=== PATIENT | male | born 1995 ===

== ENCOUNTER 2018-06-27 04:22 | Emergency (ER) | payer SELFPAY ==
[2018-06-27 04:34] VITALS: RESP 14; TEMP 97.5; O2SAT 99
[2018-06-27] MEDS ORDERED: Tetanus/Diphtheria Toxoids 0.5 ml Syringe IM ONE (04:59)
--- NOTE | 2018-06-27 05:17 | C.PDOC ---
- HPI Chief Complaint (Nursing): Trauma Past Medical History Vital Signs: Last Vital Signs Temp 97.5 F L 06/27/18 04:31 Pulse 78 06/27/18 04:31 Resp 14 06/27/18 04:31 BP 129/72 06/27/18 04:31 Pulse Ox 99 06/27/18 04:31 - Social History Hx Alcohol Use: No Hx Substance Use: No - Immunization History Hx Tetanus Toxoid Vaccination: No Hx Influenza Vaccination: No Hx Pneumococcal Vaccination: No ED Course And Treatment O2 Sat by Pulse Oximetry: 99 Disposition - Disposition
[2018-06-27] MEDS ORDERED: Lidocaine Hydrochloride 5 ML INJ ONE (05:58)
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
[2018-06-27] MEDS ORDERED: Bacitracin 500 Units/gm Oint Foilpak UD ONE (06:36)
[2018-06-27 06:52] VITALS: BP 120/80; PULSE 70
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
--- NOTE | 2018-06-27 09:04 | CT ---
CT maxillofacial HISTORY: Left facial swelling. COMPARISON: None available. TECHNIQUE: Multiple contiguous axial images were performed through the maxillofacial region without the use of intravenous contrast. Subsequently, sagittal and coronal reformatted images were obtained. This CT exam was performed using one or more of the following dose reduction techniques: Automated exposure control, adjustment of the mA and/or kV according to patient size, and/or use of iterative reconstruction technique. Findings: Soft tissue swelling with small hematoma formation overlying the left frontal cranium. Left periorbital soft tissue swelling and edema. Prominent soft tissue swelling overlying the left anterior maxillary region. Orbital globes appear preserved. Mild mucosal thickening of the left maxillary sinus. 8 millimeter mucosal retention cyst and or polyp off the medial wall of the left maxillary sinus. Sphenoid sinus is preserved. Mild mucosal thickening of the ethmoid air cells. Frontal sinus is preserved. Mastoid air cells are preserved. No evidence of acute displaced fracture. Impression: No evidence of acute displaced fracture. Soft tissue swelling with small hematoma formation overlying the left frontal cranium. Left periorbital soft tissue swelling and edema. Prominent soft tissue swelling overlying the left anterior maxillary region. Sinus mucosal disease. A preliminary report was generated at 6:02 a.m. on 06/27/[address] Alba Reilly from [employer].
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
== END 2018-06-27 06:52 | disposition home or self-care (01) ==
LOC: C.ER 04:22
DX: S01.112A Laceration without foreign body of left eyelid and periocular area, initial encounter (principal); V09.9XXA Pedestrian injured in unspecified transport accident, initial encounter; Y93.51 Activity, roller skating (inline) and skateboarding; Y92.410 Unspecified street and highway as the place of occurrence of the external cause; Z23 Encounter for immunization

== ENCOUNTER 2018-07-05 14:46 | Emergency (ER) | payer SELFPAY ==
[2018-07-05 14:52] VITALS: BMI 28.7
[2018-07-05 14:54] VITALS: BP 139/79; PULSE 85; RESP 18; TEMP 98.4; O2SAT 99
--- NOTE | 2018-07-05 14:54 | C.PDOC ---
Time Seen by Provider: 07/05/18 14:54 Chief Complaint (Nursing): Suture/Staple Removal Past Medical History Vital Signs: Last Vital Signs Temp 98.4 F 07/05/18 14:52 Pulse 85 07/05/18 14:52 Resp 18 07/05/18 14:52 BP 139/79 07/05/18 14:52 Pulse Ox 99 07/05/18 14:52 Family History: States: Unknown Family Hx - Social History Hx Alcohol Use: Yes Hx Substance Use: No - Immunization History Hx Tetanus Toxoid Vaccination: Yes Hx Influenza Vaccination: No Hx Pneumococcal Vaccination: No ED Course And Treatment O2 Sat by Pulse Oximetry: 99 Disposition - Disposition
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
== END 2018-07-05 15:48 | disposition home or self-care (01) ==
LOC: C.ER 14:46
DX: Z48.02 Encounter for removal of sutures (principal)